=== PATIENT | female | born 1985 | race Caucasian/White ===

== ENCOUNTER 2016-06-23 20:42 | Observation (INO) | payer OTHER ==
[2016-06-23 22:04] LABS: ABSOLUTE BASOPHIL COUNT 0.1 /CUMM (0.0-0.2); ABSOLUTE EOSINOPHIL COUNT 0.4 /CUMM (0.0-0.7); ABSOLUTE GRANULOCYTE CT 10.9 /CUMM (1.4-6.5); ABSOLUTE LYMPH COUNT 2.4 /CUMM (1.2-3.4); ABSOLUTE MONOCYTE COUNT 1.1 /CUMM (0.10-0.60); BASOPHIL % 0.3 % (0.0-2.0); EOSINOPHIL % 2.9 % (0-5); GRANULOCYTE % 73.5 % (42.2-75.2); HEMATOCRIT 33.8 % (37-47); MEAN CORPUSCULAR HGB 31.6 PG (27.0-31.0); MEAN CORPUSCULAR HGB CONC 35.2 G/DL (33.0-37.0); MEAN PLATELET VOLUME 8.3 FL (7.4-10.4); PLATELET COUNT 178 /CUMM (130-400); RBC DISTRIBUTION WIDTH 12.9 % (11.5-14.5); RED BLOOD CELL CT 3.75 /CUMM (4.20-5.40); WHITE BLOOD CELL COUNT 14.9 /CUMM (4.8-10.8)
== END 2016-06-24 10:45 ==
LOC: CBCO 20:42 → GNO 22:15
PROVIDERS: Specialist; ADMIT Obstetrics & Gynecology
DX: O47.1 False labor at or after 37 completed weeks of gestation (principal); Z3A.40 40 weeks gestation of pregnancy
CPT/HCPCS: 36415; 96360; 96361; G0378; G0463

== ENCOUNTER 2016-06-24 19:47 | Inpatient (IN) | payer OTHER ==
[~2016-06-24] VITALS: Ht 170.2 cm; Wt 87.5 kg
--- NOTE | 2016-06-25 00:30 | History & Physical ---
General Information and HPI MD Statement: I have seen and personally examined SARATH MCCULLOUGH and documented this H&P. The patient is a 31 year old female at40 [] weeks and [2] days gestation who presented with a chief complaint of []. 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 No Contractions: NONE Patient for Induction? No Labs Blood Type & Rh: B+ Antibody Screen: NEG Hct/Hgb & Platelets #1: 147 Hct/Hgb & Platelets #2: /199 Rubella: IMMUNE VDRL #1: NR VDRL #2: NR HbsAg: NEG HIV #1: NEG HIV #2 NEG 1 Hr P Group B Strep: NEG Initial Ultrasound: NEG Anatomy Ultrasound: NL Genetic Testing: NL Assessment/Plan As Ranked By This Provider Problem List: 1. beyond 42 weeks of gestation Core Measures/Miscellaneous Venous Thromboembolism VTE Risk Factors: / VTE Contraindications: No Contraindications VTE Prophylaxis Ordered Inpt: Mech & Pharm VTE Diagnosis: No Beta Angelique Is Beta Angelique a Home Med? No Antibiotics Is Patient on Antibiotics? No
--- NOTE | 2016-06-25 01:13 | Labor & Delivery Summary ---
Delivery Summary Vaginal Delivery: Vaginal: vertex Placenta: Placenta: normal, 3 vessel Anesthesia: block Additional Comments: WITH TURTLE NECKING .PT ADVISED TO STOP PUSHING . KNEES ADDUCTED WITH SPONTANEOUS DELIVERY OF ANT LEFT SHOULDER.
[2016-06-26 08:28] LABS: ABSOLUTE BASOPHIL COUNT 0 /CUMM (0.0-0.2); ABSOLUTE EOSINOPHIL COUNT 0.5 /CUMM (0.0-0.7); ABSOLUTE GRANULOCYTE CT 12.5 /CUMM (1.4-6.5); ABSOLUTE LYMPH COUNT 2.7 /CUMM (1.2-3.4); ABSOLUTE MONOCYTE COUNT 0.6 /CUMM (0.10-0.60); BASOPHIL % 0 % (0.0-2.0); GRANULOCYTE % 76.8 % (42.2-75.2); HEMATOCRIT 33.3 % (37-47); MEAN CORPUSCULAR HGB 31.3 PG (27.0-31.0); MEAN CORPUSCULAR VOLUME 89.5 FL (81.0-99.0); MEAN PLATELET VOLUME 8.4 FL (7.4-10.4); PLATELET COUNT 180 /CUMM (130-400); RBC DISTRIBUTION WIDTH 13.1 % (11.5-14.5); RED BLOOD CELL CT 3.72 /CUMM (4.20-5.40); WHITE BLOOD CELL COUNT 16.3 /CUMM (4.8-10.8)
--- NOTE | 2016-06-26 17:59 | PN- Post Delivery/GYN ---
Subjective Subjective: MILD CRAMPING Review of Systems: NEG Objective Last 24 Hrs of Vital Signs/I&O VSS AFEBRILE Physical Exam: FF EXT NT Assessment/Plan Assessment/Plan S/P PPD1 STABLE DISCHARGE IN AM Problem List: 1. Status post vaginal delivery
[2016-06-26] MEDS ORDERED: DOCUSATE SODIU100 M3 PO (18:01)
[2016-06-26] MEDS ORDERED: IBUPROFEN800 M1 PO (18:01)
== END 2016-06-27 11:50 | DRG 775 ==
LOC: CBCO 19:47 → GNO 20:18
PROVIDERS: Specialist; ADMIT Obstetrics & Gynecology
PROC: 10E0XZZ Delivery of Products of Conception, External Approach (ICD-10-PCS; principal; 2016-06-24)
DX: O80 Encounter for full-term uncomplicated delivery (principal); Z37.0 Single live birth; Z3A.40 40 weeks gestation of pregnancy
CPT/HCPCS: GNOP; GNOS; J2210; J7120